=== PATIENT | female | born 1975 | race African-American/Black ===

== ENCOUNTER 2022-09-04 10:24 | Emergency (ER) | payer MEDICAID ==
[~2022-09-04] VITALS: Ht 170.2 cm; Wt 67.0 kg
[2022-09-04 10:30] VITALS: BP 103/53
[2022-09-07] MEDS ORDERED: FURO-152 MT (10:17)
[2022-09-07] MEDS ORDERED: ASPI-1497 MT (10:17)
[2022-09-07] MEDS ORDERED: SPIR25TA MT (10:17)
== END 2022-09-04 11:45 | disposition left against medical advice (07) ==
LOC: ER 11:43
DX: R11.2 Nausea with vomiting, unspecified (principal); Z53.21 Procedure and treatment not carried out due to patient leaving prior to being seen by health care provider
CPT/HCPCS: 99281

== ENCOUNTER 2022-09-05 07:39 | Inpatient (IN) | payer MEDICAID ==
[~2022-09-05] VITALS: Ht 170.2 cm; Wt 75.9 kg
[2022-09-05 08:24] LABS: BASOPHILS % 0.5 % (0.0-2.0); EOSINOPHILS % 1.5 % (0.0-5.0); HEMATOCRIT. 28.3 % (36.0-48.0); HEMOGLOBIN. 8.8 g/dL (12.0-16.0); LYMPHOCYTES % 26.3 % (20.0-50.0); MEAN CORPUSCULAR HEMOGLOBIN 25.5 pg (28.0-32.0); MEAN CORPUSCULAR VOLUME 81.7 fL (81.0-99.0); MEAN PLATELET VOLUME 7.8 fl (7.4-10.4); MONOCYTES % 9.9 % (2.0-8.0); NEUTROPHILS % 61.8 % (40.0-76.0); PLATELET 275 x1000/uL (130-400); RED BLOOD CELL COUNT 3.47 mill/uL (4.2-5.4); RED CELL DISTRIBUTION WIDTH 15.9 % (11.6-14.6)
[2022-09-05 08:36] LABS: CHLORIDE 108 mEq/L (98-107)
[2022-09-05 08:55] LABS: HCG SCREEN NEGATIVE
[2022-09-05] MEDS ORDERED: FLUCONAZOLE 100MG TABLET PO ONE (09:15)
[2022-09-05] MEDS ORDERED: OXYCODONE HCL/ACETAMINOPHEN 5/325MG TABLET PO ONE (11:15)
[2022-09-05] MEDS ORDERED: DOCUSATE SODIUM 100MG CAPSULE PO PRN (12:45)
[2022-09-05] MEDS ORDERED: ZOLPIDEM TARTRATE 5MG TABLET PO PRN (12:45)
[2022-09-05] MEDS ORDERED: ACETAMINOPHEN 325MG TABLET PO PRN ×2 (12:45)
[2022-09-05] MEDS ORDERED: ONDANSETRON HCL 4MG/2ML INJ IV PRN (12:45)
[2022-09-05] MEDS ORDERED: CLONIDINE 0.1MG TABLET PO PRN (12:45)
[2022-09-05] MEDS ORDERED: IPRATROPIUM/ALBUTEROL 0.5-3(2.5)MG/3ML NEB NEB PRN (12:45)
[2022-09-05] MEDS ORDERED: NITROGLYCERIN 0.4MG TABLET SL SL PRN (12:45)
[2022-09-05] MEDS ORDERED: MAGNESIUM/ALUMINUM HYDROXIDE/SIMETHICONE 30ML UDC PO PRN (12:45)
[2022-09-05 13:15] LABS: T4 FREE 0.9 ng/dL (0.76-1.46)
[2022-09-05 13:43] LABS: VITAMIN B12 SERUM 753 pg/mL (211-911)
[2022-09-05] MEDS: ENOXAPARIN 40MG/0.4ML SYR SUBCUT SCH (14:21)
[2022-09-05] MEDS: KETOROLAC 15MG/ML VIAL IV PRN ×2 (14:22→20:57)
[2022-09-05 16:05] LABS: *AMPHETAMINES SCREEN URINE NEGATIVE (NEGATIVE); *BARBITURATES SCREEN URINE NEGATIVE (NEGATIVE); *BENZODIAZEPINES SCREEN URINE NEGATIVE (NEGATIVE); *COCAINE SCREEN URINE NEGATIVE (NEGATIVE); METHADONE URINE SCREEN NEGATIVE (NEGATIVE); OPIATES URINE SCREEN NEGATIVE (NEGATIVE); PHENCYCLIDINE URINE SCREEN NEGATIVE (NEGATIVE)
[2022-09-05 16:08] LABS: CANNABINOID URINE SCREEN PRESUMTIVE POSITIVE (NEGATIVE)
[2022-09-05 16:14] LABS: CREATINE KINASE 158 IU/L (26-192); CREATINE KINASE MB FRACTION < 1.0 ng/mL (0.5-3.6)
[2022-09-05 18:00] VITALS: BP 113/65
[2022-09-05 20:00] VITALS: BP 119/70
[2022-09-05] MEDS ORDERED: PNEUMOCOCCAL VACCINE IM ONE (20:15)
[2022-09-05 20:23] VITALS: BP 119/70
[2022-09-05] MEDS: FAMOTIDINE 20MG TABLET PO SCH (20:56)
[2022-09-05] MEDS: GUAIFENESIN 200MG/10ML SUGAR FREE UDC PO PRN (20:56)
[2022-09-05] MEDS: FUROSEMIDE 40MG/4ML VIAL IVP SCH (20:56)
[2022-09-06] VITALS: BP 107/65
[2022-09-06 00:42] LABS: CREATINE KINASE 140 IU/L (26-192); CREATINE KINASE MB FRACTION < 1.0 ng/mL (0.5-3.6)
[2022-09-06] MEDS: SPIRONOLACTONE 25MG TABLET PO SCH ×3 (01:46→22:58)
[2022-09-06 04:00] VITALS: BP 109/70
[2022-09-06] MEDS: GUAIFENESIN 200MG/10ML SUGAR FREE UDC PO PRN ×2 (05:21→20:46)
[2022-09-06] MEDS: KETOROLAC 15MG/ML VIAL IV PRN ×2 (05:26→20:45)
[2022-09-06 06:47] LABS: BASOPHILS % 0.2 % (0.0-2.0); EOSINOPHILS % 2.6 % (0.0-5.0); HEMATOCRIT. 25.5 % (36.0-48.0); HEMOGLOBIN. 8.5 g/dL (12.0-16.0); LYMPHOCYTES % 44.5 % (20.0-50.0); MEAN CORPUSCULAR HEMOGLOBIN 26.5 pg (28.0-32.0); MEAN PLATELET VOLUME 8.2 fl (7.4-10.4); MONOCYTES % 11.5 % (2.0-8.0); NEUTROPHILS % 41.2 % (40.0-76.0); PLATELET 239 x1000/uL (130-400); RED BLOOD CELL COUNT 3.19 mill/uL (4.2-5.4); RED CELL DISTRIBUTION WIDTH 15.6 % (11.6-14.6)
[2022-09-06 07:23] LABS: CHLORIDE 108 mEq/L (98-107)
[2022-09-06 07:34] LABS: PHOSPHORUS 4.7 mg/dL (2.5-4.9)
[2022-09-06 08:00] VITALS: BP 106/60
[2022-09-06] MEDS: FAMOTIDINE 20MG TABLET PO SCH ×2 (08:49→20:45)
[2022-09-06] MEDS: FUROSEMIDE 40MG/4ML VIAL IVP SCH ×2 (08:50→20:45)
[2022-09-06] MEDS ORDERED: ASPIRIN 325MG EC TABLET PO SCH (09:00)
[2022-09-06 12:00] VITALS: BP 94/58
[2022-09-06] MEDS: ENOXAPARIN 40MG/0.4ML SYR SUBCUT SCH (13:13)
[2022-09-06 16:00] VITALS: BP 94/54
[2022-09-06 20:00] VITALS: BP 97/59
[2022-09-07] VITALS: BP 95/43
[2022-09-07 04:00] VITALS: BP 95/43
[2022-09-07] MEDS: GUAIFENESIN 200MG/10ML SUGAR FREE UDC PO PRN (05:45)
[2022-09-07 08:00] VITALS: BP 104/65
[2022-09-07 08:08] LABS: HEPATITIS B SURFACE ANTIGEN NEGATIVE
[2022-09-07] MEDS: FAMOTIDINE 20MG TABLET PO SCH ×2 (08:38→22:52)
[2022-09-07] MEDS: FUROSEMIDE 40MG/4ML VIAL IVP SCH ×2 (08:38→22:47)
[2022-09-07] MEDS: SPIRONOLACTONE 25MG TABLET PO SCH ×2 (08:38→21:00)
[2022-09-07] MEDS ORDERED: ASPI-1497 MT (10:17)
[2022-09-07] MEDS ORDERED: FURO-152 MT (10:17)
[2022-09-07] MEDS ORDERED: SPIR25TA MT (10:17)
[2022-09-07 12:15] VITALS: BP 97/57
[2022-09-07] MEDS: ENOXAPARIN 40MG/0.4ML SYR SUBCUT SCH (13:20)
[2022-09-07 16:00] VITALS: BP 82/44
[2022-09-07 20:00] VITALS: BP 89/51
[2022-09-08] VITALS: BP 83/47
[2022-09-08 04:00] VITALS: BP 89/52
[2022-09-08 08:00] VITALS: BP 125/50
[2022-09-08] MEDS: FAMOTIDINE 20MG TABLET PO SCH (08:57)
[2022-09-08] MEDS: SPIRONOLACTONE 25MG TABLET PO SCH (08:57)
[2022-09-08] MEDS: FUROSEMIDE 40MG/4ML VIAL IVP SCH (09:17)
[2022-09-08 12:00] VITALS: BP 103/60
[2022-09-08] MEDS: ENOXAPARIN 40MG/0.4ML SYR SUBCUT SCH (14:47)
== END 2022-09-08 16:21 | disposition home or self-care (01) | DRG 194 ==
LOC: ER 07:39 → EDBEDREQ 11:08 → EDBEDREQTM 11:08 → 7EST 17:52 → 6EST 09-07 15:17
PROVIDERS: ADMIT Internal Medicine; ATTEND Internal Medicine
DX: I50.33 Acute on chronic diastolic (congestive) heart failure (principal); E44.1 Mild protein-calorie malnutrition; D63.8 Anemia in other chronic diseases classified elsewhere; E83.51 Hypocalcemia; F17.210 Nicotine dependence, cigarettes, uncomplicated; I34.1 Nonrheumatic mitral (valve) prolapse; J44.9 Chronic obstructive pulmonary disease, unspecified; Z20.822 Contact with and (suspected) exposure to COVID-19; M94.0 Chondrocostal junction syndrome [Tietze]; Z68.26 Body mass index [BMI] 26.0-26.9, adult
CPT/HCPCS: 36415; 71045; 80053; 80061; 80305; 82550; 82553; 82607; 82746; 83036; 83540; 83550; 83735; 83880; 84100; 84439; 84443; 84484; 84703; 85025; 85379; 86803; 87340; 87426; 90732; 93005; 93306; 93970; 99285; C9803; J1650; J1885; J1940

== ENCOUNTER 2022-10-27 21:31 | Emergency (ER) | payer MEDICAID ==
[~2022-10-27] VITALS: Ht 170.2 cm; Wt 66.6 kg
[~2022-10-27 21:31] MED LIST: ASPI-1497 MT; FURO-152 MT; SPIR25TA MT
[2022-10-27 21:41] VITALS: RESP 14; O2SAT 100
[2022-10-27] MEDS ORDERED: CLIN-194 MT (21:59)
[2022-10-27 22:03] VITALS: BP 140/76; PULSE 98; TEMP 98
== END 2022-10-27 21:52 | disposition home or self-care (01) ==
LOC: ER 21:31
DX: R07.89 Other chest pain (principal); R50.9 Fever, unspecified; R00.2 Palpitations; J44.9 Chronic obstructive pulmonary disease, unspecified
CPT/HCPCS: 99281

== ENCOUNTER 2023-02-13 18:13 | Emergency (ER) | payer MEDICAID ==
[~2023-02-13] VITALS: Ht 170.2 cm; Wt 66.0 kg
[~2023-02-13 18:13] MED LIST changes: +CLIN-194 MT
[2023-02-13 18:26] VITALS: O2SAT 100
[2023-02-13 19:53] LABS: BASOPHILS % 0.7 % (0.0-2.0); DIFFERENTIAL COMMENT 0; EOSINOPHILS % 1.9 % (0.0-5.0); HEMATOCRIT. 31.3 % (36.0-48.0); HEMOGLOBIN. 10.3 g/dL (12.0-16.0); LYMPHOCYTES % 30.4 % (20.0-50.0); MEAN CORPUSCULAR HEMOGLOBIN 25.2 pg (28.0-32.0); MEAN CORPUSCULAR HGB CONC 32.9 g/dL (31.0-37.0); MEAN CORPUSCULAR VOLUME 76.7 fL (81.0-99.0); MEAN PLATELET VOLUME 7.6 fl (7.4-10.4); MONOCYTES % 7.4 % (2.0-8.0); NEUTROPHILS % 59.6 % (40.0-76.0); PLATELET 289 x1000/uL (130-400); RED BLOOD CELL COUNT 4.08 mill/uL (4.2-5.4); RED CELL DISTRIBUTION WIDTH 16.5 % (11.6-14.6); WHITE BLOOD COUNT 5.4 x1000/uL (4.5-11.0)
[2023-02-13 19:57] LABS: CHLORIDE 107 mEq/L (98-107); INDEX HEMOLYSI 1 (1-3); INDEX ICTERIC 1 (1-4); INDEX LIPEMIC 1 (1-3); POTASSIUM 4.1 mEq/L (3.5-5.1); SODIUM 138 mEq/L (136-145)
[2023-02-13 20:07] LABS: ALANINE AMINOTRANSFERASE 120 IU/L (13-61); ASPARTATE AMINOTRANSFERASE 60 IU/L (15-37); BILIRUBIN TOTAL 0.9 mg/dL (0.1-1.0); CALCIUM 9.1 mg/dL (8.5-10.1); CARBON DIOXIDE 26 mEq/L (21-32); CREATININE 0.9 mg/dL (0.6-1.3); ETHANOL BLOOD < 10 mg/dL (<10); GLUCOSE 86 mg/dL (70-105); UREA NITROGEN BLOOD 12 mg/dL (7-21)
[2023-02-14 02:25] LABS: ACETAMINOPHEN <2 ug/mL ug/mL (10-30); ETHANOL BLOOD < 10 mg/dL (<10)
[2023-02-14] MEDS ORDERED: ARIPIPRAZOLE 5MG TABLET PO NR (10:45)
[2023-02-15] MEDS ORDERED: RISPERIDONE 0.5MG TABLET PO SCH (11:00)
[2023-02-15 11:48] LABS: CLARITY URINE TURBID (CLEAR); COLOR URINE DARK YELLOW (YELLOW); GLUCOSE URINE NEGATIVE (NEGATIVE); KETONES URINE TRACE (NEGATIVE); LEUKOCYTE ESTERASE URINE NEGATIVE (NEGATIVE); NITRITE URINE NEGATIVE (NEGATIVE); OCCULT BLOOD URINE NEGATIVE (NEGATIVE); PROTEIN URINE TRACE (NEGATIVE); SPECIFIC GRAVITY URINE 1.031 (1.005-1.030)
[2023-02-15 12:24] LABS: BACTERIA URINE 1+; RBC URINE NONE SEEN /hpf (0-2); SQUAMOUS EPITHELIAL CELL URINE 2+ /lpf (RARE/1+); WBC URINE 0-2 /hpf (0-2)
[2023-02-15 12:55] LABS: *AMPHETAMINES SCREEN URINE NEGATIVE (NEGATIVE); *BARBITURATES SCREEN URINE NEGATIVE (NEGATIVE); *BENZODIAZEPINES SCREEN URINE NEGATIVE (NEGATIVE); *COCAINE SCREEN URINE NEGATIVE (NEGATIVE); CANNABINOID URINE SCREEN NEGATIVE (NEGATIVE); ECSTASY MDMA SCREEN URINE NEGATIVE (NEGATIVE); OPIATES URINE SCREEN NEGATIVE (NEGATIVE); PHENCYCLIDINE URINE SCREEN NEGATIVE (NEGATIVE)
[2023-02-15 15:00] LABS: METHADONE URINE SCREEN INVALID (NEGATIVE)
[2023-02-15 17:15] VITALS: BP 117/74; PULSE 82; RESP 16; TEMP 96.9
[2023-02-15] MEDS ORDERED: TRAZODONE HCL 50MG TABLET PO SCH (21:00)
== END 2023-02-15 18:32 ==
LOC: ER 18:13
DX: F32.9 Major depressive disorder, single episode, unspecified (principal); F41.9 Anxiety disorder, unspecified; J44.9 Chronic obstructive pulmonary disease, unspecified; Z20.822 Contact with and (suspected) exposure to COVID-19
CPT/HCPCS: 80053; 81025; 80307; 80329; 80320; 85025; 36415; 99285; 80305; 81003; 87426; C9803; 99283; G0480